=== PATIENT | female | born 1990 | race Caucasian/White ===

== ENCOUNTER 2024-09-15 13:53 | Emergency (ER) | payer OTHER ==
[2024-09-15 14:45] VITALS: RESP 18; TEMP 98.6; O2SAT 100
--- NOTE | 2024-09-15 15:11 | ERPHSYRPT ---
- History of Present Illness Time Seen by Provider: 09/15/24 14:45 Source: patient Patient Subjective Stated Complaint: C/O animal bite. Patient states she was trimming a dog's nails at work ([employer]) today and the dog bit her. Bite to right hand (digits). Triage Nursing Assessment: Patient ambulated back to ER without difficulties. She is alert and oriented. 3 small puncture wounds noted; 1 to thumb of right hand, 1 to posterior tip of 2nd digit right hand, and 1 to anterior tip of 2nd digit to right hand. No active bleeding. [facility] checks WNL. Timing/Duration: today Severity: mild Associated Symptoms: denies symptoms Allergies/Adverse Reactions: Penicillins Allergy (Verified 09/15/24 14:35) Home Medications: Gabapentin [Neurontin ] 200 mg PO HS 09/15/24 [History] Omeprazole 40 mg PO DAILY 09/15/24 [History] lamoTRIgine [Lamictal] 150 mg PO BID 09/15/24 [History] Hx Tetanus, Diphtheria Vaccination/Date Given: Yes (tetanus within last 3 years) Hx Influenza Vaccination/Date Given: Yes Immunizations Up to Date: Yes Travel Risk - International Travel Have you traveled outside of the country in past 3 weeks: No - Emerging Infectious Disease Are you exhibiting symptoms associated with any current EIDs: No - Review of Systems Constitutional: No Symptoms Eyes: No Symptoms Ears, Nose, & Throat: No Symptoms Respiratory: No Symptoms Cardiac: No Symptoms Abdominal/Gastrointestinal: No Symptoms Genitourinary Symptoms: No Symptoms Musculoskeletal: No Symptoms - Past Medical History Pertinent Past Medical History: Yes Psycho-Social History: Anxiety, Bipolar Other Medical History: RLS - Past Surgical History Past Surgical History: Yes Gastrointestinal: Cholecystectomy - Female History Hx Last Menstrual Period: NOW Hx Now: No - Social History Smoking Status: Never smoker Exposure to second hand smoke: No Drug Use: none - Social Determinants of Health Will the patient participate in the screening: Yes Do you worry about a steady place to live?: No Do you have any problems with any of the following?: No known problems In the past 12 months,have you had to go without utilities?: No Transportation Issues: No Has anyone in your support network made you feel unsafe?: No Have you or anyone in your house had to go without enough: No - Nursing Vital Signs Nursing Vital Signs: Initial Vital Signs Temperature 98.6 F 09/15/24 14:36 Pulse Rate 107 H 09/15/24 14:36 Respiratory Rate 18 09/15/24 14:36 Blood Pressure 129/93 09/15/24 14:36 O2 Sat by Pulse Oximetry 100 09/15/24 14:36 Pain Scale Pain Intensity 2 - Physical Exam General Appearance: no apparent distress Eye Exam: PERRL/EOMI Ears, Nose, Throat Exam: normal ENT inspection Neck Exam: normal inspection Respiratory Exam: normal breath sounds Cardiovascular Exam: regular rate/rhythm Gastrointestinal/Abdomen Exam: soft, normal bowel sounds Extremity Exam: other (punture wounds noted to the right thumb and index finger which have good ROM and no motor or sensory deficits ) SpO2: 100 - Progress Progress Note: patient was offered Rabies vaccination she defers at this time and will be discharged home on antibiotics and was given wound care precautions and informed of the need for follow up 09/15/24 15:07 Medical Desision Making - Discussion of managment Agreed on:: need for follow-up Will see patient: In office - Departure Departure Disposition: Home Clinical Impression: Dog bite of right hand Condition: Good Critical Care Time: No Referrals: DOCTOR,NO FAMILY [Primary Care Provider] - Follow up/PCP as directed Prescriptions: Smz/Tmp Ds Tablet [Bactrim Ds Tablet] 1 udtab PO BID #14 tablet Clindamycin HCl 150 mg [Cleocin 150 mg Capsule] 2 cap PO TID #48 cap
[2024-09-15 15:26] VITALS: BP 138/91; PULSE 95
== END 2024-09-15 15:40 | disposition home or self-care (01) ==
LOC: ED 13:53
DX: S60.371A Other superficial bite of right thumb, initial encounter (principal); S60.470A Other superficial bite of right index finger, initial encounter; W54.0XXA Bitten by dog, initial encounter; Y93.K3 Activity, grooming and shearing an animal; Y99.0 Civilian activity done for income or pay; Z79.899 Other long term (current) drug therapy
CPT/HCPCS: 99283